=== PATIENT | female | born 1995 | race Caucasian/White ===

== ENCOUNTER 2021-10-20 11:33 | Outpatient (CLI) | payer OTHER ==
[2021-10-21 11:47] LABS: SARS-CoV-2 PCR by NAA Not Detected (NotDetected)
== END 2021-10-20 11:34 | disposition home or self-care (01) ==
LOC: CSHLAB 11:33
PROVIDERS: ATTEND Advanced Practice Midwife
DX: Z20.822 Contact with and (suspected) exposure to COVID-19 (principal)
CPT/HCPCS: U0003; U0005

== ENCOUNTER 2021-10-24 06:00 | Inpatient (IN) | payer OTHER ==
[~2021-10-24 06:00] MED LIST: Carboprost 250 MCG/ML AMP IM PRN; Diphenoxylate HCl/Atropine Tablet PO PRN; HYDROcodone/Acetaminophen 5/325 mg Tablet PO PRN; Ibuprofen 800 MG TAB PO PRN; Lidocaine 1% (PF) 30 ML VIAL SC PRN; Methylergonovine 0.2 MG/ML VIAL IM PRN; Misoprostol 200 MCG TAB PR PRN; Ondansetron PF 4 MG/2 ML Vial IVP PRN; Promethazine HCl 25 MG/ML VIAL IM PRN; hydrALAZINE 20 MG/ML VIAL SLOW IVP PRN
[2021-10-24] MEDS: Lactated Ringer's 1,000 ML IV SCH ×3 (06:47→17:04)
[2021-10-24] MEDS ORDERED: NS w/ Oxytocin 30 units 500 ML IV SCH ×3 (07:00→23:00)
[2021-10-24 07:07] VITALS: BMI 59.9
[2021-10-24 07:36] LABS: Hemoglobin 12.5 g/dL (12.0-15.5); Mean Corpuscular HGB CONC 33.1 g/dL (32.0-36.0); Mean Corpuscular Hemoglobin 27.5 pg (27.0-33.0); Mean Corpuscular Volume 83.1 fl (81.6-98.3); Mean Platelet Volume 11.3 fl (7.4-10.4); Platelet Count 154 10x3/uL (150-450); RBC Distribution Width 16.2 % (11.5-14.5); Red Blood Cell (RBC) Count 4.55 10x6/uL (3.90-5.03); White Blood Cell (WBC) Count 7.2 10x3/uL (3.5-10.5)
[2021-10-24] MEDS ORDERED: Bupivacaine/Epinephrine 0.25% 30 ML VIAL ONE (08:00)
[2021-10-24 09:07] LABS: Hep B Surf Ag Non-Reactive S/CO (NonReactive)
[2021-10-24 09:09] LABS: Syphilis Antibody Nonreactive (Nonreactive); Syphilis Antibody Index 0.07 S/CO (<1.00 Non-Reactive)
[2021-10-24 09:21] LABS: HBSAg Index 0.18 S/CO (0-0.99)
[2021-10-24] MEDS: Butorphanol Tartrate 1 MG/ML VIAL SLOW IVP PRN ×2 (13:45→14:49)
[2021-10-24] MEDS ORDERED: Fentanyl 2 mcg/Bup 0.1% Cadd 100 ML ONE (16:24)
[2021-10-24] MEDS ORDERED: Ondansetron PF 4 MG/2 ML Vial IVP PRN ×2 (17:04→22:23)
[2021-10-24] MEDS ORDERED: Acetaminophen 325 MG TAB PO PRN (17:04)
[2021-10-24] MEDS ORDERED: diphenhydrAMINE 50 MG/ML VIAL IVP PRN (17:04)
[2021-10-24] MEDS ORDERED: Lactated Ringer's 500 ML IV PRN (17:04)
[2021-10-24] MEDS ORDERED: Hydrocerin (Eucerin) Cream 120 gm Jar TOP PRN (17:04)
[2021-10-24] MEDS ORDERED: Promethazine HCl 25 MG/ML VIAL IM PRN (17:04)
[2021-10-24] MEDS ORDERED: Naloxone HCl 0.4 mg/ml Vial IVP PRN ×2 (17:04)
[2021-10-24] MEDS ORDERED: ePHEDrine Sulfate 50 MG/10 ML VIAL SLOW IVP PRN (17:04)
[2021-10-24] MEDS ORDERED: Fentanyl 2 mcg/Bupivacaine 0.1% Cassette 100 ML EPIDURAL SCH (17:15)
[2021-10-24] MEDS ORDERED: Communication Order-Pharmacy FS SCH (17:15)
[2021-10-24] MEDS ORDERED: Methylergonovine 0.2 MG/ML VIAL IM PRN (22:23)
[2021-10-24] MEDS ORDERED: Misoprostol 200 MCG TAB VAG PRN (22:23)
[2021-10-24] MEDS ORDERED: hydrALAZINE 20 MG/ML VIAL SLOW IVP PRN (22:23)
[2021-10-24] MEDS ORDERED: Lanolin Ointment 7 GM TUBE TOP PRN (22:23)
[2021-10-24] MEDS ORDERED: Boostrix 0.5 ML (Tdap) VIAL IM ONE (22:23)
[2021-10-24] MEDS ORDERED: diphenhydrAMINE 25 MG CAP PO PRN (22:23)
[2021-10-24] MEDS ORDERED: Bisacodyl 10 MG SUPP PR PRN (22:23)
[2021-10-24] MEDS ORDERED: Benzocaine-Menthol 82.5 ML CAN TOP PRN (22:23)
[2021-10-24] MEDS ORDERED: HYDROcodone/Acetaminophen 5/325 mg Tablet PO PRN ×2 (22:23)
[2021-10-24] MEDS ORDERED: Milk Of Magnesia 30 ML UDCUP PO PRN (22:23)
[2021-10-24] MEDS ORDERED: Ibuprofen 800 MG TAB PO SCH (22:30)
[2021-10-24] MEDS ORDERED: Docusate 100 MG CAP PO SCH (22:30)
[2021-10-25] MEDS: Ibuprofen 800 MG TAB PO SCH ×2 (05:49→14:40)
[2021-10-25] MEDS: Ferrous Sulfate 325 MG TAB PO SCH ×2 (08:08→18:29)
[2021-10-25] MEDS ORDERED: Docusate 100 MG CAP PO SCH (09:00)
[2021-10-25] MEDS ORDERED: Prenatal Vitamin 1 TAB PO SCH (09:00)
[2021-10-25 18:31] VITALS: BP 115/62; TEMP 98.3
== END 2021-10-25 21:40 | disposition home or self-care (01) | DRG 807 ==
LOC: CSHLD 06:12 → CSHPP 21:52
PROVIDERS: ADMIT Obstetrics & Gynecology; ATTEND Obstetrics & Gynecology
PROC: 10E0XZZ Delivery of Products of Conception, External Approach (ICD-10-PCS; principal; 2021-10-24)
PROC: 0U7C7ZZ Dilation of Cervix, Via Natural or Artificial Opening (ICD-10-PCS; 2021-10-24)
PROC: 10907ZC Drainage of Amniotic Fluid, Therapeutic from Products of Conception, Via Natural or Artificial Opening (ICD-10-PCS; 2021-10-24)
PROC: 10H07YZ Insertion of Other Device into Products of Conception, Via Natural or Artificial Opening (ICD-10-PCS; 2021-10-24)
DX: O24.429 Gestational diabetes mellitus in childbirth, unspecified control (principal); Z37.0 Single live birth; Z3A.38 38 weeks gestation of pregnancy; Z90.89 Acquired absence of other organs; O26.893 Other specified pregnancy related conditions, third trimester; Z67.21 Type B blood, Rh negative; O99.214 Obesity complicating childbirth; E66.01 Morbid (severe) obesity due to excess calories; O69.81X0 Labor and delivery complicated by cord around neck, without compression, not applicable or unspecified
CPT/HCPCS: 36415; 51702; 85027; 86780; 86850; 86900; 86901; 87340; J0595; J2405; J2590; J7120